=== PATIENT | female | born 1930 | race Caucasian/White ===

== ENCOUNTER 2018-06-28 11:28 | Emergency (ER) | payer OTHER ==
[2018-06-28 13:32] LABS: Absolute Lymphocytes (CBC) 1.7 K/uL (0.7-4.9); Absolute Monocytes 0.5 K/uL (0.1-1.3); Absolute Neutrophil 5.8 K/uL (1.8-8.0); Basophils % 0.8 % (0-1.3); Eosinophils % 4.6 % (0-4.4); Hematocrit 25.1 % (36.0-45.0); MPV 7.9 fL (7.6-11.3); Monocytes % 5.6 % (3.3-12.3); RBC Red Blood Cell Count 3.57 M/uL (3.86-4.86)
[2018-06-28 13:42] LABS: Protime INR 1.08
[2018-06-28 14:12] LABS: Ferritin 16.2 ng/mL (8-388); Folic Acid, (Folate) 5.3 ng/mL (3.1-17.5); Potassium 4.6 mmol/L (3.5-5.1)
[2018-06-28] MEDS ORDERED: NA CHLORIDE 0.9% 500 ML ONE (14:44)
--- NOTE | 2018-06-28 14:50 | EDPHYS ---
Physician Documentation [facility] Name: Atiya Casarez Age: 88 yrs Sex: Female : 1930 Arrival Date: 06/28/2018 Time: 11:29 Bed 28 Private MD: Dylon Arreola ED Physician Alfredo Murillo HPI: 06/28 12:31 This 88 yrs old Female presents to ER via Wheelchair with complaints of rn Abnormal Lab Results - sent by dr arreola. 12:[address] Arreola for anemia, reports single episode of dark black stool, has rn had anemia in past without diagnosis reports scoped above and below, and transfused a few years ago. + generalized weakness and sob. . Onset: The symptoms/episode began/occurred at an unknown time. Severity of symptoms: At their worst the symptoms were mild in the emergency department the symptoms are unchanged. The patient has experienced a previous episode. The patient has been recently seen by a physician:. Historical: - Allergies: 12:30 PENICILLINS; dm5 12:30 Valium; dm5 14:54 Levaquin; ca1 14:54 Tramadol HCl; ca1 - Home Meds: 12:49 albuterol sulfate 2.5 mg /3 mL (0.083 %) Inhl nebu 3 mL 3 times per day [Active]; ch 14:54 hydralazine 50 mg Oral tab 1 tab 3 times a day [Active]; sertraline 50 mg oral tab 1 ca1 tab once daily [Active]; carvedilol 6.25 mg oral tab 1 tab daily [Active]; clopidogrel 75 mg oral tab 1 tab once daily [Active]; furosemide 20 mg Oral tab 1 tab once daily [Active]; aspirin 81 mg Oral chew 1 tab once daily [Active]; pantoprazole 40 mg oral TbEC 1 tab once daily [Active]; Vitamin D Oral 50,000 unit [Active]; Lyrica Oral 1 cap daily [Active]; 14:58 Symbicort [Active]; proair [Active]; Sprivia [Active]; Nystatin Powder 10,000 twice a ca1 day [Active]; - PMHx: 12:49 Hypertension; ch - Immunization history:: Adult Immunizations up to date. - Social history:: Smoking status: Patient/guardian denies using tobacco, Patient/guardian denies using alcohol, street drugs. - Family history:: not pertinent. - Ebola Screening: : Patient negative for fever greater than or equal to 101.5 degrees Fahrenheit, and additional compatible Ebola Virus Disease symptoms Patient denies exposure to infectious person Patient denies travel to an Ebola-affected area in the 21 days before illness onset No symptoms or risks identified at this time. - Hospitalizations: : No recent hospitalization is reported. ROS: 12:31 Constitutional: Negative for fever, chills, and weight loss, ENT: Negative for injury, rn pain, and discharge, Neck: Negative for injury, pain, and swelling, Cardiovascular: Negative for chest pain, palpitations, and edema, Respiratory: Negative for shortness of breath, cough, wheezing, and pleuritic chest pain, Abdomen/GI: Negative for abdominal pain, nausea, vomiting, diarrhea, and constipation, + dark stool MS/Extremity: Negative for injury and deformity, Skin: Negative for injury, rash, and discoloration, Neuro: + generalized weakness Exam: 12:31 Constitutional: This is a well developed, well nourished patient who is awake, alert, rn and in no acute distress. Head/Face: Normocephalic, atraumatic. Eyes: Pupils equal round and reactive to light, extra-ocular motions intact. Lids and lashes normal. Pale conjunctivae ENT: MMM Cardiovascular: Regular rate and rhythm. No pulse deficits. Respiratory: Lungs have equal breath sounds bilaterally, clear to auscultation. No increased work of breathing, no retractions or nasal flaring. Abdomen/GI: soft, non-tender MS/ Extremity: Pulses equal, no cyanosis. Neurovascular intact. Full, normal range of motion. Equal circumference. Neuro: Awake and alert, GCS 15, oriented to person, place, time, and situation. Cranial nerves II-XII grossly intact. Motor strength 5/5 in all extremities. Sensory grossly intact. Cerebellar exam normal. Vital Signs: 12:30 BP 158 / 73; Pulse 60; Resp 15; Pulse Ox 97% on R/A; dm5 12:47 BP 144 / 71; Pulse 66; Resp 16; Temp 98.4; Pulse Ox 99% on R/A; Weight 72.12 kg; Pain ch 0/10; 13:30 BP 140 / 91; Pulse 67; Resp 19; Pulse Ox 100% ; ca1 14:31 BP 135 / 87; Pulse 63; Resp 18; Pulse Ox 100% ; ca1 15:31 BP 164 / 49; Pulse 50; Resp 18; Pulse Ox 99% on R/A; tl3 MDM: 12:15 Patient medically screened. rn 14:48 Differential Diagnosis anemia. Data reviewed: vital signs, nurses notes, lab test rn result(s), and as a result, I will discharge patient. Counseling: I had a detailed discussion with the patient and/or guardian regarding: the historical points, exam findings, and any diagnostic results supporting the discharge/admit diagnosis, lab results, the need for outpatient follow up, to return to the emergency department if symptoms worsen or persist or if there are any questions or concerns that arise at home. Special discussion: I discussed with the patient/guardian in detail that at this point there is no indication for admission to the hospital. It is understood, however, that if the symptoms persist or worsen the patient needs to return immediately for re-evaluation. Based on the history and exam findings, there is no indication for further emergent testing or inpatient evaluation. I discussed with the patient/guardian the need to see the dough molder hand/oncologist for further evaluation of the symptoms. ED course: Pt with iron deficiency anemia, hemoccult negative, spoke with Dr. Arreola who states can set up outpt iron infusions, patient has had iron infusions in past and comfortable with plan, normal vitals. . 06/28 12:23 Order name: CBC with Diff; Complete Time: 14:09 rn 06/28 12:23 Order name: Basic Metabolic Panel; Complete Time: 14:28 rn 06/28 12:23 Order name: Protime (+inr); Complete Time: 14: rn 06/28 12:23 Order name: Ptt, Activated; Complete Time: 14: rn 06/28 12:23 Order name: Type And Screen rn 06/28 12:23 Order name: Iron Level; Complete Time: 14:28 rn 06/28 12:23 Order name: IV Start; Complete Time: 13:14 rn 06/28 12:23 Order name: Retic Count; Complete Time: 14:09 rn 06/28 12:23 Order name: Ferritin rn 06/28 12:23 Order name: TRANSFERRIN SAT/IRON BINDING; Complete Time: 14:28 rn 06/28 12:23 Order name: Folic Acid,Serum (folate); Complete Time: 14:28 rn 06/28 12:23 Order name: B12; Complete Time: 14:28 rn 06/28 12:24 Order name: EKG; Complete Time: 12:25 rn 06/28 12:24 Order name: EKG - Nurse/Tech; Complete Time: 13:14 rn Administered Medications: 14:33 Drug: NS 0.9% 500 ml Route: IV; Rate: bolus; Site: right antecubital; ca1 15:32 Follow up: Response: No adverse reaction; IV Status: Completed infusion ca1 15:32 Follow up: IV Status: Completed infusion; IV Intake: 500ml tl3 Disposition: 06/28/18 14:49 Discharged to Home. Impression: Iron deficiency anemia. - Condition is Stable. - Discharge Instructions: Iron Deficiency Anemia, Adult. - Medication Reconciliation Form, Thank You Letter, Antibiotic Education, Prescription Opioid Use form. - Follow up: Dylon Arreola MD; When: Upon discharge from the Emergency Department; Reason: Recheck today's complaints, Re-evaluation by your physician. - Problem is an ongoing problem. - Symptoms have improved. Signatures: Dispatcher [employer] EDMS Jenna Lowery RN RN Samaria Boudreaux RN RN dm5 Alfredo Murillo MD MD rn Lowrey, Tammy, RN RN tl3 Anju Amador RN RN ca1 Corrections: (The following items were deleted from the chart) 15:34 14:49 06/28/2018 14:49 Discharged to Home. Impression: Iron deficiency anemia. tl3 Condition is Stable. Forms are Medication Reconciliation Form, Thank You Letter, Antibiotic Education, Prescription Opioid Use. Follow up: Dylon Arreola; When: Upon discharge from the Emergency Department; Reason: Recheck today's complaints, Re-evaluation by your physician. Problem is an ongoing problem. Symptoms have improved. rn
--- NOTE | 2018-06-28 14:50 | ER ---
Nurse's Notes [facility] Name: Atiya Casarez Age: 88 yrs Sex: Female : 1930 Arrival Date: 06/28/2018 Time: 11:29 Bed 28 Private MD: Dylon Arita Diagnosis: Iron deficiency anemia Presentation: 06/28 12:29 Presenting complaint: Patient states: sent by Dr. Arita for abnormal labs. Possibly dm5 HGB but the patient is unsure. Transition of care: patient was not received from another setting of care. Onset of symptoms was June 28, 2018. Risk Assessment: Do you want to hurt yourself or someone else? Patient reports no desire to harm self or others. Initial Sepsis Screen: Does the patient meet any 2 criteria? No. Patient's initial sepsis screen is negative. Does the patient have a suspected source of infection? No. Patient's initial sepsis screen is negative. Care prior to arrival: None. 12:29 Method Of Arrival: Wheelchair dm5 12:29 Acuity: JONI 3 dm5 Triage Assessment: 12:30 General: Appears in no apparent distress. Behavior is calm, cooperative. Pain: Denies dm5 pain. Neuro: Level of Consciousness is awake, alert, obeys commands, Oriented to person, place. Neuro: Reports weakness. Cardiovascular:. Respiratory: Airway is patent Respiratory effort is even, unlabored, relaxed. GI: Reports one black stool. : No signs and/or symptoms were reported regarding the genitourinary system. Derm: Skin is dry, Skin is pale, Skin temperature is warm. Historical: - Allergies: 12:30 PENICILLINS; dm5 12:30 Valium; dm5 14:54 Levaquin; ca1 14:54 Tramadol HCl; ca1 - Home Meds: 12:49 albuterol sulfate 2.5 mg /3 mL (0.083 %) Inhl nebu 3 mL 3 times per day [Active]; ch 14:54 hydralazine 50 mg Oral tab 1 tab 3 times a day [Active]; sertraline 50 mg oral tab 1 ca1 tab once daily [Active]; carvedilol 6.25 mg oral tab 1 tab daily [Active]; clopidogrel 75 mg oral tab 1 tab once daily [Active]; furosemide 20 mg Oral tab 1 tab once daily [Active]; aspirin 81 mg Oral chew 1 tab once daily [Active]; pantoprazole 40 mg oral TbEC 1 tab once daily [Active]; Vitamin D Oral 50,000 unit [Active]; Lyrica Oral 1 cap daily [Active]; 14:58 Symbicort [Active]; proair [Active]; Sprivia [Active]; Nystatin Powder 10,000 twice a ca1 day [Active]; - PMHx: 12:49 Hypertension; ch - Immunization history:: Adult Immunizations up to date. - Social history:: Smoking status: Patient/guardian denies using tobacco, Patient/guardian denies using alcohol, street drugs. - Family history:: not pertinent. - Ebola Screening: : Patient negative for fever greater than or equal to 101.5 degrees Fahrenheit, and additional compatible Ebola Virus Disease symptoms Patient denies exposure to infectious person Patient denies travel to an Ebola-affected area in the 21 days before illness onset No symptoms or risks identified at this time. - Hospitalizations: : No recent hospitalization is reported. Screenin:04 Abuse screen: Denies threats or abuse. Denies injuries from another. Nutritional ch screening: No deficits noted. Tuberculosis screening: No symptoms or risk factors identified. Fall Risk None identified. Assessment: 13:04 General: Appears in no apparent distress. comfortable, Behavior is calm, cooperative, ch appropriate for age. Pain: Denies pain. Neuro: No deficits noted. Respiratory: Airway is patent Trachea midline Respiratory effort is even, unlabored, Breath sounds are diminished bilaterally. GI: No signs and/or symptoms were reported involving the gastrointestinal system. Patient currently denies nausea, rectal bleeding, vomiting. : No signs and/or symptoms were reported regarding the genitourinary system. Derm: Skin is pale, pt has lots of fresh bruises, pt skin bruses very easily, from bp cuff. 14:00 Reassessment: Patient appears in no apparent distress at this time. Patient and/or ca1 family updated on plan of care and expected duration. Pain level reassessed. Patient is alert, oriented x 3, equal unlabored respirations, skin warm/dry/pink. 14:43 Reassessment: Patient appears in no apparent distress at this time. Patient and/or ca1 family updated on plan of care and expected duration. Pain level reassessed. Patient is alert, oriented x 3, equal unlabored respirations, skin warm/dry/pink. Dr. Murillo at bedside. 15:01 Reassessment: Awaiting fluids to be completed prior to discharge per Dr. Murillo's ca1 instructions. . 15:31 Reassessment: Patient appears in no apparent distress at this time. No changes from tl3 previously documented assessment. Patient and/or family updated on plan of care and expected duration. Pain level reassessed. Patient is alert, oriented x 3, equal unlabored respirations, skin warm/dry/pink. pt being discharged. Vital Signs: 12:30 BP 158 / 73; Pulse 60; Resp 15; Pulse Ox 97% on R/A; dm5 12:47 BP 144 / 71; Pulse 66; Resp 16; Temp 98.4; Pulse Ox 99% on R/A; Weight 72.12 kg; Pain ch 0/10; 13:30 BP 140 / 91; Pulse 67; Resp 19; Pulse Ox 100% ; ca1 14:31 BP 135 / 87; Pulse 63; Resp 18; Pulse Ox 100% ; ca1 15:31 BP 164 / 49; Pulse 50; Resp 18; Pulse Ox 99% on R/A; tl3 ED Course: 11:29 Patient arrived in ED. sb2 11:30 Dylon Arita MD is Private Physician. sb2 12:15 Alfredo Murillo MD is Attending Physician. rn 12:30 Triage completed. dm5 12:30 Arm band placed on. dm5 12:47 Jenna Lowery, KATHRYN is Primary Nurse. ch 12:49 EKG done, by health information tech. reviewed by Alfredo Murillo MD. at1 13:04 Patient has correct armband on for positive identification. Placed in gown. Bed in low ch position. Call light in reach. Side rails up X 1. Adult w/ patient. court monitor on. Pulse ox on. NIBP on. Warm blanket given. 13:04 Missed attempt(s): 20 gauge in left forearm. Bleeding controlled, band aid applied, ch catheter tip intact. 13:23 Initial lab(s) drawn, by me, sent to lab. Inserted saline lock: 22 gauge in right tl3 antecubital area, using aseptic technique. Blood collected. 14:49 Dylon Arita MD is Referral Physician. rn 15:01 No provider procedures requiring assistance completed. ca1 15:31 IV discontinued, intact, bleeding controlled, No redness/swelling at site. Pressure tl3 dressing applied. Administered Medications: 14:33 Drug: NS 0.9% 500 ml Route: IV; Rate: bolus; Site: right antecubital; ca1 15:32 Follow up: Response: No adverse reaction; IV Status: Completed infusion ca1 15:32 Follow up: IV Status: Completed infusion; IV Intake: 500ml tl3 Intake: 15:32 IV: 500ml; Total: 500ml. tl3 Outcome: 14:49 Discharge ordered by . rn 15:31 Discharged to home via wheelchair. tl3 15:31 Condition: stable 15:31 Discharge instructions given to patient, family, Instructed on discharge instructions, follow up and referral plans. medication usage, Demonstrated understanding of instructions, follow-up care. 15:34 Patient left the ED. tl3 Signatures: Jenna Lowery, RN RN Samaria Doe RN RN dm5 Alfredo Murillo MD MD rn Gonzales, Amanda, cylinder inspector EKG Tat1 Ashley Caba sb2 Avelina De La Vega RN RN tl3 Anju Amador RN RN ca1
[2018-06-28 16:02] VITALS: TEMP 98.4
[2018-06-28 16:06] VITALS: BP 164/49; O2SAT 99
--- NOTE | 2018-06-28 17:01 | EKG ---
Test Date: 2018-05-28 Test Time: 12:42:52 Traffic Control Operator: MIGUEL ANGEL MEASUREMENT RESULTS: Intervals: Rate: 61 [place]: 172 QRSD: 128 QT: 476 QTc: 479 [place]: P: 53 [place]: 172 QRS: -38 T: 61 INTERPRETIVE STATEMENTS: Sinus rhythm with premature atrial complexes Left axis deviation Left bundle branch block Abnormal ECG Compared to ECG 11/04/2015 10:40:42 Atrial premature complex(es) now present Left-axis deviation now present Left bundle-branch block now present Sinus bradycardia no longer present Electronically Signed On 06-28-18 17:01:00 MAIL TECHNICIAN by Patel Parra
== END 2018-06-28 15:34 | disposition home or self-care (01) ==
LOC: ER 11:28
DX: D50.9 Iron deficiency anemia, unspecified (principal); I44.7 Left bundle-branch block, unspecified; I49.1 Atrial premature depolarization; R94.31 Abnormal electrocardiogram [ECG] [EKG]; I10 Essential (primary) hypertension; Z79.82 Long term (current) use of aspirin; Z79.899 Other long term (current) drug therapy
CPT/HCPCS: 36415; 80048; 82607; 82728; 82746; 83540; 84466; 85025; 85044; 85610; 85730; 86850; 86900; 86901; 93005; 96360; 99284

== ENCOUNTER 2018-11-09 08:19 | Day surgery (SDC) | payer OTHER ==
[2018-11-09 09:24] LABS: Albumin 3.5 g/dL (3.4-5.0); Bilirubin Total 0.2 mg/dL (0.2-1.0); Protein, Total 7.1 g/dL (6.4-8.2)
[2018-11-09 09:26] VITALS: BMI 34.3
[2018-11-09 09:31] LABS: Protime INR 0.98
[2018-11-09 09:33] LABS: Platelet Estimate ADEQ
--- NOTE | 2018-11-09 12:21 | RAD REPORT ---
EXAM DESCRIPTION: RAD - Thoracic Spine Ap/Lat - 11/09/2018 12:10 pm CLINICAL HISTORY: M54.5, M54.2, M54.6, M54.16 COMPARISON: Chest film October 2017. FINDINGS: AP & lateral views of the thoracic spine were obtained. T1-T11 vertebrae are normal in height. Osteopenic changes are present. There is right lateral tilt ac ross the entirety of the thoracic spine. There is accentuated kyphosis at the T11-12 level. Extensive surgical hardware is in place spanning T11- L3. Partial chronic wedge compression of T12 is present. There is fusion across the T12-L1 disc level. Prominent anterior spurs are present at T11-12 disc le bjorn which is narrowed slightly. Approximately 20% wedge compression present in the T5 body, stable from at least October 2017. No parasp inal mass. Thoracic vertebrae are otherwise normal in height. IMPRESSION: Osteopenic changes are present in the thoracic spine with no acute finding identifiable. The 20% T5 compression and the wedge compression of T12 are stable from prior imaging. Accentuated kyphosis and right lateral tilt of the thoracic spine associated with the superior aspect of the fusion hardware at T11-12.
--- NOTE | 2018-11-09 12:23 | RAD REPORT ---
EXAM DESCRIPTION: RAD - C Spine Ap/Lat - 11/09/2018 12:10 pm CLINICAL HISTORY: M54.5, M54.2, M54.6, M54.16 COMPARISON: None. FINDINGS: AP and lateral views of the cervical spine obtained. Cervical bodies are normal in height and alignment. No fracture or acute bony process seen. Bones are osteopenic. Posterior endplate spurring changes are present at C4-5 and C5-6. Facet joint degenerati ve changes are present. There is no prevertebral soft tissue thickening or other suspicious soft tissue finding. Carotid calcifications are present. IMPRESSION: Osteopenic and degenerative cervical spine changes are present without fracture or acute cervical finding. Degenerative changes are most pronounced where there is moderate-sized posterior endplate spurring at C5-6.
--- NOTE | 2018-11-09 12:27 | RAD REPORT ---
EXAM DESCRIPTION: RAD - Lumbar Spine 3 Views - 11/09/2018 12:10 pm CLINICAL HISTORY: M54.5, M54.2, M54.6, M54.16 COMPARISON: None. FINDINGS: AP and lateral views of the lumbar spine were obtained. Spina findings are further detaile d on separately reported myelogram and post myelogram CT imaging. L3-L5 bodies are normal in height and alignment. No disc space narrowing at the lower 3 lumbar level s. Prominent facet joint degenerative changes are present at L4-5 and L5-S1. Extensive surgical hardware present from upper or lumbar and thoracolumbar fusion. Left lateral fusio n plate and bone screws are present at the vertebral body level. There is posterior charla placement spa nning T11-L3. No hardware fracture. Neurostimulator device is in place. Accentuated kyphosis present at the thoracolumbar junction. Slight wedging of the T12 and L1 bodies n oted with evidence for fusion across the T12-L1 disc space. There is probably bony fusion across the L1-2 disc space as well. No acute fracture changes seen. No lytic, sclerotic or expansile destructive process. L2-3 disc space narrowing present. IMPRESSION: Fusion changes of the upper lumbar spine with left lateral vertebral body hardware sonia ing T12- L3 and posterior hardware spanning T11-L3. T12-L2 bodies appear fused across the respective disc levels. Prominent degenerative disc disease at L2-3.
--- NOTE | 2018-11-09 13:01 | RAD REPORT ---
EXAM DESCRIPTION: RAD - Myelography Entire Spine - 11/09/2018 12:21 pm CLINICAL HISTORY: Back pain, radiculopathy, extensive lumbar surgery COMPARISON: Lumbar plain films same date, CT abdomen pelvis October 2017 TECHNIQUE: The patient presents for fluoroscopic assisted total myelogram. The myelogram procedure, risks and alternatives were discussed with the patient in detail. After answering all questions both oral and written consent were obtained. The patient had no contraindicated allergy or medication hist ory. PT/INR/platelet values were normal range. The patient was placed in a prone oblique position on the fluoroscopic table. Preliminary imaging lg ntified access site at the L4-5 level. Bony hypertrophy and hardware precluded access elsewhere in th e lumbar spine. Skin of the lower back was prepped and draped in the usual sterile fashion. Skin and deeper tissues w ere anesthetized with 1% lidocaine. Using fluoroscopic assistance, a 22 gauge spinal needle was advan harika into the thecal sac at the L4-5 level. Intrathecal placement was confirmed. Approximately 15 mL o f Isovue M 200 contrast material was instilled into the thecal sac. The needle was withdrawn and a st erile bandage placed to the puncture site. The patient tolerated procedure well without immediate com plications. The patient was in no new pain at the conclusion of the procedure. Several spot images we re obtained of the lumbar spine. The patient was transferred to the CT suite for cross-sectional imag ing of the cervical, thoracic and lumbar spine. Trendelenburg positioning was utilized with the patie nt supine, prone and on her side to enable transfer of contrast from the lumbar spine to thoracic and cervical spine regions. At the conclusion of the CT imaging, the patient was transferred to the same day surgical area for post myelogram monitoring. Fluoro time was 3.0 minutes. There were 6 fluoroscopic spot images obtained during the procedure. IMPRESSION: 1. Total myelogram procedure was performed as detailed. There were no immediate complica tions. 2. Myelogram findings are incorporated into the CT imaging.
--- NOTE | 2018-11-09 13:05 | RAD REPORT ---
EXAM DESCRIPTION: CT - Myelogram C Spine - 11/09/2018 12:23 pm CLINICAL HISTORY: Neck pain, upper and lower extremity radiculopathy, extensive lumbar surgical devries ge M54.5, M54.2, M54.6, M54.16 COMPARISON: CT cervical spine same date TECHNIQUE: After patient maneuvering to transfer myelogram contrast column into the cervical canal, axial 2 millimeter thick images of the cervical spine were obtained. Sagittal and coronal reformatted images were generated and reviewed. FINDINGS: Cervical bodies are normal in height and normal in AP alignment. No fracture changes are p resent. No lytic, sclerotic or expansile bony process seen. Mastoid air cells are clear. Arterial naseem e calcifications are present. No suspicious findings at the skull base. No tonsillar ectopia. Moderate severity degenerative change present at the dens anterior arch C1 level. No encroachment of the central canal. There is mild thickening of the transverse ligament posterior to the dens without calcification. No contact of the cervicomedullary junction. C2-3 level: Mild posterior endplate spurring and disc bulge changes are present partially attenuating the anterior subarachnoid space. Midline canal diameter is 12 mm. No significant foraminal encroachm ent. C3-4 level: Broad-based bulging of disc material is seen across is canal partially attenuating the an terior subarachnoid space. Posterior ligamentous thickening is seen. Midline canal diameter is 11 mm. No foraminal stenosis. C4-5 level: Broad-based disc herniation is seen across the central canal. This contacts and slightly flattens the cord. Canal diameter is 8 mm. Posterior ligamentous thickening is present. No significan t foraminal encroachment. Central canal detail is somewhat limited by the body habitus. Herniation is estimated at 4 mm AP by 11 mm TR. C5-6 level: Disc bulge and endplate spurring changes attenuate the anterior subarachnoid space. There is contact and flattening of the cord. Canal diameter is 8 mm. No significant bony foraminal encroac hment. The disc space is narrowed. C6-7 level: Posterior endplate spurring and disc bulge changes are present. No flattening of the cord . No central spinal stenosis. No significant foraminal encroachment. C7-T1 level: No significant finding. No expansile change of the cord. Facet joint degenerative changes are present but minimal for age. IMPRESSION: 1. 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 2. C5-6 disc bulge and endplate spurring changes. Canal stenosis to 8 mm noted. 3. C3-4 disc bulge. No canal or foramen stenosis. 4. C2-3 disc bulge and endplate spurring resulting in no significant canal stenosis. No foraminal enc roachment.
--- NOTE | 2018-11-09 13:08 | RAD REPORT ---
EXAM DESCRIPTION: CT - Thoracic Spine Wo Cont - 11/09/2018 12:23 pm CLINICAL HISTORY: M54.5, M54.2, M54.6, M54.16 COMPARISON: Thoracic spine same date, chest exam October 2017 TECHNIQUE: Following patient positioning maneuvers to transfer intrathecal contrast, axial [address] thick images of the thoracic spine were obtained. Sagittal and coronal reformatted images were ge nerated and reviewed. FINDINGS: Approximately 20% wedge compression is present in the T5 body stable from October 2017. Poste rior wall height is preserved. T1-T11 vertebrae are otherwise normal in height. There is wedging of t he T12 body that is chronic. No acute compression fracture is present. No lytic, sclerotic or expansile destructive change. No par aspinal mass is identified. Prominent midline and right-sided disc bulge is present at T5-6. Minimal left central disc bulge at T 6-7. The bulging discs changes do not contact the cord. No central spinal stenosis. No expansile changes in the cord. No central canal mass. IMPRESSION: 1. T5-6 prominent midline and right-sided disc bulge with mild left central disc bulge a t T6-7. No contact of the cord. No canal or foramen stenosis. 2. No other significant disc level finding. Partial wedge compressions of T5 and T12 are stable. 3. No other significant findings from T1-T11. T12 findings are incorporated into the lumbar spine CT report.
[2018-11-09 13:09] VITALS: O2SAT 97
--- NOTE | 2018-11-09 13:13 | RAD REPORT ---
EXAM DESCRIPTION: CT - Spine Lumbar Wo Con - 11/09/2018 12:02 pm CLINICAL HISTORY: M54.5, M54.2, M54.6, M54.16 COMPARISON: Lumbar spine plain films same date, CT abdomen and pelvis October 2017 TECHNIQUE: Following intrathecal placement of contrast detailed on the separate myelogram procedure report, axial 2 millimeter thick images of the lumbar spine were obtained spanning T10-S3. Sagittal a nd coronal reformatted images were generated and reviewed. All CT scans are performed using dose optimization technique as appropriate and may include automated exposure control or mA/KV adjustment according to patient size. FINDINGS: Fibula or rib graft material is in place from the T12-1 disc level inferiorly through the L2 body. Fixation hardware is present along the left lateral margin of the vertebral column from T12- L3. Posterior fixation hardware is present from T11-L3. No hardware fracture. T12-L2 bodies appear well-healed across the disc spaces. Overall lumbar bones are osteopenic. There i s left lateral curvature with the apex at the T12 level. There is also accentuated kyphosis at T11-12 . There is mild chronic wedging of the T12 body that has not changed from prior imaging. L3-L5 bodies are normal in height and alignment. No acute component. No disc space narrowing at these levels. No paraspinal soft tissue mass. Postsurgical changes are present in the posterior soft tissues. No ac luke soft tissue finding suspected. Conus terminates at the L1 level. No clumping or thickening of the cauda equina identified. No CT fin dings to indicate arachnoiditis. T10-11 disc level shows degenerative gas in the disc space. No herniation or disc bulge. No canal or foramen stenosis. T11-12 disc level shows no herniation or significant disc bulge. Midline AP canal diameter is 10-11 m m. Surgical hardware is the primary contributor of narrowing of the canal at this level. T12-L1 level: Disc level is fused. No herniation, disc bulge and endplate spurring encroaching into t he central canal. The cord is flattened near the tip of the conus due to the kyphosis at T12. AP diam eter is 11-12 mm. L1-2 level: Well-healed fusion across the disc space. No disc bulge, herniation or bone spurring into the central canal. No central spinal stenosis or significant foraminal encroachment identifiable. L2-3 level: No herniation or significant disc bulge. No canal or significant foraminal stenosis. L3-4 level: No canal stenosis or significant foraminal encroachment. No significant disc finding. L4-5 level: No herniation or significant disc bulge. No canal or foramen stenosis. Facet degenerative changes are present. L5-S1 level: No herniation or significant disc bulge in the central canal. There is prominent right f oraminal disc bulge causing foraminal stenosis. There is still fat surrounding the exiting nerve root . No left foraminal stenosis. IMPRESSION: 1. Extensive postsurgical change present in the upper lumbar spine. There is well-healed fusion across the T12-L2 levels. 2. Bone graft and surgical hardware in place. There is accentuated kyphosis at the T12 level with lef t convex curvature of the upper lumbar spine. No fracture of hardware. 3. Conus is flattened along the T12 level due to the kyphosis. No clumping or thickening of the cauda equina. No CT evidence for arachnoiditis. 4. No disc herniation or significant degree of disc bulge in the lumbar spine. No central spinal sten osis present and no significant degree of foraminal stenosis seen.
[2018-11-09 17:02] VITALS: BP 145/48; TEMP 97.9
== END 2018-11-09 15:20 | disposition home or self-care (01) ==
LOC: DS 08:19
PROVIDERS: ATTEND Specialist
DX: M54.16 Radiculopathy, lumbar region (principal); Z98.1 Arthrodesis status; M40.294 Other kyphosis, thoracic region; M51.34 Other intervertebral disc degeneration, thoracic region; M50.221 Other cervical disc displacement at C4-C5 level; M50.31 Other cervical disc degeneration, high cervical region; M48.02 Spinal stenosis, cervical region
CPT/HCPCS: 36415; 85049; 85610; 85730; 80053; 72131; 72126; 72040; 72100; 62305; 72070; Q9966

== ENCOUNTER 2018-12-22 16:14 | Emergency (ER) | payer OTHER ==
[2018-12-22 17:16] LABS: Absolute Lymphocytes (CBC) 1.7 K/uL (0.7-4.9); Basophils % 0.8 % (0-1.3); Lymphocytes % 18.9 % (15.3-44.8); MPV 8.8 fL (7.6-11.3); RBC Red Blood Cell Count 4.09 M/uL (3.86-4.86)
[2018-12-22 17:16] LABS: Urine Blood NEGATIVE (NEG); Urine Glucose NEGATIVE (NEG); Urine Protein NEGATIVE (NEG); Urine Specific Gravity 1.015 (1.005-1.030); Urine pH 5.5 (5.0-7.0)
[2018-12-22 17:32] LABS: ALT/SGPT 23 U/L (12-78); AST/SGOT 16 U/L (15-37); Albumin 3.9 g/dL (3.4-5.0); Alkaline Phosphatase 96 U/L (45-117); BUN Blood Urea Nitrogen 47 mg/dL (7-18); Bicarbonate 25 mmol/L (21-32); Bilirubin Direct < 0.1 mg/dL (0-0.2); Bilirubin Total 0.2 mg/dL (0.2-1.0); Glucose Level 111 mg/dL (74-106); Lipase 414 U/L (73-393); Protein, Total 7.7 g/dL (6.4-8.2); Sodium Level 143 mmol/L (136-145)
--- NOTE | 2018-12-22 17:57 | RAD REPORT ---
EXAM DESCRIPTION: CTAbdomen Pelvis W Contrast - 12/22/2018 5:48 pm CLINICAL HISTORY: Abdominal pain. ABD PAIN COMPARISON: Abdomen Pelvis W Contrast dated 11/20/2017 TECHNIQUE: Biphasic CT imaging of the abdomen and pelvis was performed with 100 ml non-ionic IV cont rast. All CT scans are performed using dose optimization technique as appropriate and may include automated exposure control or mA/KV adjustment according to patient size. FINDINGS: The lung bases are clear.Moderate hiatal hernia. Cholecystectomy. No focal liver mass or biliary dilatation seen. The spleen, pancreas are normal. Small adrenal lesion s are present bilaterally, larger on the left measuring 17 mm, probably adenomas. Cysts are present i n both kidneys without hydronephrosis or aggressive mass. No bowel obstruction, free air, free fluid or abscess. Prominent sigmoid diverticulosis coli without diverticulitis. The appendix is not identified as a discrete structure, however, no secondary finding s of appendicitis are identified. No evidence of significant lymphadenopathy. Hardware is present in the lumbar spine. [place] left posterior fluid collection again noted in the le ft posterior soft tissues, decreased in size since prior study. IMPRESSION: No acute intra-abdominal or pelvic finding. Postsurgical lumbar spine. Prominent sigmoid diverticulosis coli.
--- NOTE | 2018-12-22 18:11 | EDPHYS ---
Physician Documentation [facility] Name: Atiya Casarez Age: 88 yrs Sex: Female : 1930 Arrival Date: 12/22/2018 Time: 16:16 Bed 19 Private MD: Dylon Arita ED Physician Alfredo Murillo HPI: 12/22 17:51 This 88 yrs old Female presents to ER via Ambulatory with complaints of Back kb Pain, Blood In Urine. 17:51 The patient presents with abdominal pain that is diffuse. Onset: The symptoms/episode kb began/occurred this morning. The symptoms do not radiate. Associated signs and symptoms: Pertinent positives: "blood when I wiped earlier today". The symptoms are described as constant. Modifying factors: The symptoms are alleviated by nothing, the symptoms are aggravated by nothing. Severity of pain: At its worst the pain was moderate in the emergency department the pain is unchanged. The patient has not experienced similar symptoms in the past. The patient has not recently seen a physician. Pt reports lower back pain for 2 weeks, lower abd pain for a few days and today had some blood on the tissue when she wiped. States she wiped twice, there was blood both times and that was all. Denies any bleeding since then. . Historical: - Allergies: 16:36 Levaquin; hb 16:36 PENICILLINS; hb 16:36 Tramadol HCl; hb 16:36 Valium; hb - Home Meds: 16:36 albuterol sulfate 2.5 mg /3 mL (0.083 %) Inhl nebu 3 mL 3 times per day [Active]; hb aspirin 81 mg Oral chew 1 tab once daily [Active]; carvedilol 6.25 mg Oral tab 1 tab daily [Active]; clopidogrel 75 mg Oral tab 1 tab once daily [Active]; furosemide 20 mg Oral tab 1 tab once daily [Active]; hydralazine 50 mg Oral tab 1 tab 3 TIMES A DAY [Active]; Lyrica Oral 1 cap daily [Active]; Nystatin Powder 10,000 twice a day [Active]; proair [Active]; pantoprazole 40 mg Oral TbEC 1 tab once daily [Active]; sertraline 50 mg Oral tab 1 tab once daily [Active]; Sprivia [Active]; symbicort [Active]; Vitamin D Oral 24816 unit [Active]; - PMHx: 16:36 Hypertension; hb - PSHx: 16:36 Hysterectomy; hb - Immunization history:: Adult Immunizations up to date. - Social history:: Smoking status: Patient/guardian denies using tobacco. - Ebola Screening: : No symptoms or risks identified at this time. ROS: 17:50 Constitutional: Negative for fever, chills, and weight loss, Cardiovascular: Negative kb for chest pain, palpitations, and edema, Respiratory: Negative for shortness of breath, cough, wheezing, and pleuritic chest pain, Back: Negative for injury and pain, MS/Extremity: Negative for injury and deformity, Skin: Negative for injury, rash, and discoloration, Neuro: Negative for headache, weakness, numbness, tingling, and seizure. 17:50 Abdomen/GI: Positive for abdominal pain, Negative for nausea, vomiting, and diarrhea, constipation, abdominal cramps, abdominal distension, anorexia. 17:50 : Positive for "blood when I wiped earlier today". Exam: 17:50 Constitutional: This is a well developed, well nourished patient who is awake, alert, kb and in no acute distress. Head/Face: Normocephalic, atraumatic. Neck: Trachea midline, no thyromegaly or masses palpated, and no cervical lymphadenopathy. Supple, full range of motion without nuchal rigidity, or vertebral point tenderness. No Meningismus. Chest/axilla: Normal chest wall appearance and motion. Nontender with no deformity. No lesions are appreciated. Cardiovascular: Regular rate and rhythm with a normal S1 and S2. No gallops, murmurs, or rubs. Normal PMI, no JVD. No pulse deficits. Respiratory: Lungs have equal breath sounds bilaterally, clear to auscultation and percussion. No rales, rhonchi or wheezes noted. No increased work of breathing, no retractions or nasal flaring. Back: No spinal tenderness. No costovertebral tenderness. Full range of motion. Skin: Warm, dry with normal turgor. Normal color with no rashes, no lesions, and no evidence of cellulitis. MS/ Extremity: Pulses equal, no cyanosis. Neurovascular intact. Full, normal range of motion. Neuro: Awake and alert, GCS 15, oriented to person, place, time, and situation. Cranial nerves II-XII grossly intact. Motor strength 5/5 in all extremities. Sensory grossly intact. Cerebellar exam normal. Normal gait. 17:50 Abdomen/GI: Inspection: abdomen appears normal, Bowel sounds: normal, in all quadrants, Palpation: soft, in all quadrants, mild abdominal tenderness, in all quadrants. Vital Signs: 16:33 BP 204 / 77; Pulse 68; Resp 16; Temp 97.9; Pulse Ox 100% on R/A; Weight 77.11 kg; hb Height 4 ft. 11 in. (149.86 cm); Pain 10/10; 17:17 BP 173 / 65; Pulse 59; Resp 21 S; Pulse Ox 98% on R/A; jl7 18:00 BP 172 / 64; Pulse 62; Resp 20 S; Pulse Ox 100% on R/A; jl7 16:33 Body Mass Index 34.34 (77.11 kg, 149.86 cm) hb MDM: 16:38 Patient medically screened. kb 17:50 Data reviewed: vital signs, nurses notes. Data interpreted: Pulse oximetry: on room air kb is 98 %. Interpretation: normal. 18:10 Counseling: I had a detailed discussion with the patient and/or guardian regarding: the kb historical points, exam findings, and any diagnostic results supporting the discharge/admit diagnosis, lab results, radiology results, the need for outpatient follow up, a family practitioner, to return to the emergency department if symptoms worsen or persist or if there are any questions or concerns that arise at home. 12/22 16:56 Order name: Basic Metabolic Panel; Complete Time: 17:33 kb 12/22 16:56 Order name: CBC with Diff; Complete Time: 17:33 kb 12/22 16:56 Order name: Hepatic Function; Complete Time: 17:33 kb 12/22 16:56 Order name: Lipase; Complete Time: 17:33 kb 12/22 16:56 Order name: CT Abd/Pelvis - IV Contrast Only; Complete Time: 18:01 kb 12/22 17:12 Order name: Urine Dipstick--Ancillary (enter results); Complete Time: 17:16 bd 12/22 16:56 Order name: IV Saline Lock; Complete Time: 17:09 kb 12/22 16:56 Order name: Labs collected and sent; Complete Time: 17:09 kb 12/22 16:56 Order name: Urine Dipstick-Ancillary (obtain specimen); Complete Time: 17:09 kb Administered Medications: No medications were administered Disposition: 12/22/18 18:10 Discharged to Home. Impression: Generalized abdominal pain. - Condition is Stable. - Discharge Instructions: Abdominal Pain, Adult, [id number]. - Medication Reconciliation Form, Thank You Letter, Antibiotic Education, Prescription Opioid Use form. - Follow up: Emergency Department; When: As needed; Reason: Worsening of condition. Follow up: Private Physician; When: 2 - 3 days; Reason: Recheck today's complaints, Continuance of care, Re-evaluation by your physician. Signatures: Dispatcher [employer] EDMS Beti Galvan, STREETCAR CONDUCTOR-C STREETCAR CONDUCTOR-Julia Sweeney RN RN Tammie Stephens RN RN jl7 Corrections: (The following items were deleted from the chart) 18:36 18:10 12/22/2018 18:10 Discharged to Home. Impression: Generalized abdominal pain. jl7 Condition is Stable. Forms are Medication Reconciliation Form, Thank You Letter, Antibiotic Education, Prescription Opioid Use. Follow up: Emergency Department; When: As needed; Reason: Worsening of condition. Follow up: Private Physician; When: 2 - 3 days; Reason: Recheck today's complaints, Continuance of care, Re-evaluation by your physician. kb
--- NOTE | 2018-12-22 18:11 | ER ---
Nurse's Notes [facility] Name: Atiya Casarez Age: 88 yrs Sex: Female : 1930 Arrival Date: 12/22/2018 Time: 16:16 Bed 19 Private MD: Dylon Arita Diagnosis: Generalized abdominal pain Presentation: 12/22 16:32 Presenting complaint: Right sided back pain x 2 weeks, blood in urine and lower hb abdominal cramping today. Transition of care: patient was not received from another setting of care. Onset of symptoms was December 22, 2018. Risk Assessment: Do you want to hurt yourself or someone else? Patient reports no desire to harm self or others. Initial Sepsis Screen: Does the patient meet any 2 criteria? No. Patient's initial sepsis screen is negative. Does the patient have a suspected source of infection? No. Patient's initial sepsis screen is negative. Care prior to arrival: None. 16:32 Method Of Arrival: Ambulatory hb 16:32 Acuity: JONI 3 hb Historical: - Allergies: 16:36 Levaquin; hb 16:36 PENICILLINS; hb 16:36 Tramadol HCl; hb 16:36 Valium; hb - Home Meds: 16:36 albuterol sulfate 2.5 mg /3 mL (0.083 %) Inhl nebu 3 mL 3 times per day [Active]; hb aspirin 81 mg Oral chew 1 tab once daily [Active]; carvedilol 6.25 mg Oral tab 1 tab daily [Active]; clopidogrel 75 mg Oral tab 1 tab once daily [Active]; furosemide 20 mg Oral tab 1 tab once daily [Active]; hydralazine 50 mg Oral tab 1 tab 3 TIMES A DAY [Active]; Lyrica Oral 1 cap daily [Active]; Nystatin Powder 10,000 twice a day [Active]; proair [Active]; pantoprazole 40 mg Oral TbEC 1 tab once daily [Active]; sertraline 50 mg Oral tab 1 tab once daily [Active]; Sprivia [Active]; symbicort [Active]; Vitamin D Oral 34312 unit [Active]; - PMHx: 16:36 Hypertension; hb - PSHx: 16:36 Hysterectomy; hb - Immunization history:: Adult Immunizations up to date. - Social history:: Smoking status: Patient/guardian denies using tobacco. - Ebola Screening: : No symptoms or risks identified at this time. Screenin:55 Abuse screen: Denies threats or abuse. Denies injuries from another. Nutritional jl7 screening: No deficits noted. Tuberculosis screening: No symptoms or risk factors identified. Fall Risk IV access (20 points). Total Figueroa Fall Scale indicates No Risk (0-24 pts). Assessment: 16:55 General: Appears in no apparent distress. uncomfortable, Behavior is calm, cooperative, jl7 appropriate for age. Pain: Complains of pain in right lower quadrant and left lower quadrant Pain radiates to low back area Pain currently is 8 out of 10 on a pain scale. Quality of pain is described as sharp, Pain began 2 weeks ago Is continuous. Neuro: Level of Consciousness is awake, alert, obeys commands, Oriented to person, place, time, situation. Cardiovascular: Patient's skin is warm and dry. Respiratory: Airway is patent Respiratory effort is even, unlabored. GI: Abdomen is round non-distended, Abdomen is tender to palpation in right upper quadrant, left upper quadrant and left lower quadrant. : Urine is clear, Reports vaginal bleeding that is bright red. Derm: Skin is pink, warm \T\ dry. 18:00 Reassessment: Patient appears in no apparent distress at this time. No changes from jl7 previously documented assessment. Patient and/or family updated on plan of care and expected duration. Pain level reassessed. Patient is alert, oriented x 3, equal unlabored respirations, skin warm/dry/pink. Vital Signs: 16:33 BP 204 / 77; Pulse 68; Resp 16; Temp 97.9; Pulse Ox 100% on R/A; Weight 77.11 kg; hb Height 4 ft. 11 in. (149.86 cm); Pain 10/10; 17:17 BP 173 / 65; Pulse 59; Resp 21 S; Pulse Ox 98% on R/A; jl7 18:00 BP 172 / 64; Pulse 62; Resp 20 S; Pulse Ox 100% on R/A; jl7 16:33 Body Mass Index 34.34 (77.11 kg, 149.86 cm) hb ED Course: 16:16 Patient arrived in ED. mr 16:17 Dylon Arita MD is Private Physician. mr 16:33 Triage completed. hb 16:33 Arm band placed on. hb 16:37 Beti Galvan FNP-C [facility]. kb 16:37 Alfredo Murillo MD is Attending Physician. kb 16:38 Tammie Stephens, RN is Primary Nurse. jl7 16:55 Patient has correct armband on for positive identification. Placed in gown. Bed in low jl7 position. Call light in reach. Side rails up X 1. Pulse ox on. NIBP on. Warm blanket given. 16:59 Radiology exam delayed due to lab results not completed at this time. (BUN/Creatinine). 17:00 Initial lab(s) drawn, by me, sent to lab. Urine collected: clean catch specimen, clear. jl7 Inserted saline lock: 20 gauge in right antecubital area, using aseptic technique. Blood collected. 17:11 Radiology exam delayed due to lab results not completed at this time. (BUN/Creatinine). wa 17:48 CT Abd/Pelvis - IV Contrast Only In Process Unspecified. EDMS 18:36 No provider procedures requiring assistance completed. IV discontinued, intact, jl7 bleeding controlled, No redness/swelling at site. Pressure dressing applied. Administered Medications: No medications were administered Outcome: 18:10 Discharge ordered by MD. kb 18:36 Discharged to home via wheelchair, with family. jl7 18:36 Condition: stable 18:36 Discharge instructions given to patient, family, Instructed on discharge instructions, follow up and referral plans. Demonstrated understanding of instructions, follow-up care. 18:36 Patient left the ED. jl7 Signatures: Dispatcher [employer] EDMS Beti Galvan FNP-C FNP-Eunice Venessa Beltrán, Bernice Julia Ornelas, RN RN Forest Ott Jahala, RN RN jl7
[2018-12-22 18:47] VITALS: TEMP 97.9
[2018-12-22 18:50] VITALS: BP 172/64; O2SAT 100
== END 2018-12-22 18:36 | disposition home or self-care (01) ==
LOC: ER 16:14
DX: R10.9 Unspecified abdominal pain (principal); I10 Essential (primary) hypertension; Z88.1 Allergy status to other antibiotic agents; Z88.5 Allergy status to narcotic agent; Z79.82 Long term (current) use of aspirin
CPT/HCPCS: 85025; 80048; 36415; 80076; 81003; 83690; 74177; Q9967

== ENCOUNTER 2020-12-20 11:04 | Day surgery (SDC) | payer OTHER ==
[2020-12-18 10:46] LABS: Absolute Lymphocytes (CBC) 2.1 K/uL (0.7-4.9); Basophils % 0.9 % (0-1.3); Hematocrit 24.6 % (36.0-45.0); MPV 7.3 fL (7.6-11.3); RBC Red Blood Cell Count 3.64 M/uL (3.86-4.86)
[2020-12-18 10:54] LABS: Potassium 4.1 mmol/L (3.5-5.1)
[2020-12-18 11:02] LABS: Protime INR 1.07
--- NOTE | 2020-12-18 11:25 | RAD REPORT ---
EXAM DESCRIPTION: RAD - Chest Pa And Lat (2 Views) - 12/18/2020 11:01 am CLINICAL HISTORY: pre-procedure, patient pending cardiac catheterization COMPARISON: October 2017 TECHNIQUE: Frontal and lateral views of the chest were obtained. FINDINGS: The lungs are clear of acute process. Mild chronic interstitial pattern matches compariso n. Heart size is normal and central vasculature is within normal limits. No pleural effusion or pneu mothorax seen. No acute bone findings seen. There is fusion hardware at the thoracolumbar junction w ith accentuated kyphosis. This is a stable presentation. No aortic abnormality. IMPRESSION: No acute cardiopulmonary process. No significant change from comparison study.
[2020-12-18 13:18] LABS: Anisocytosis 1+; Blood Morphology Comment NOTED (NOT SEEN); Hypochromasia 1+; Platelet Estimate ADEQ; White Blood Cell Scan OK (OK)
--- NOTE | 2020-12-20 07:35 | EKG ---
Test Date: 2020-12-18 Test Time: 09:13:28 Key Account Director: MIGUEL ANGEL MEASUREMENT RESULTS: Intervals: Rate: 78 [place]: 166 QRSD: 124 QT: 406 QTc: 462 [place]: P: 49 [place]: 166 QRS: -40 T: 123 INTERPRETIVE STATEMENTS: Normal sinus rhythm Left axis deviation Left bundle branch block Abnormal ECG Compared to ECG 06/28/2018 12:42:52 Atrial premature complex(es) no longer present Electronically Signed On 12-20-20 07:29:11 CDT by John Grant
--- NOTE | 2020-12-20 07:35 | EKG ---
Test Date: 2020-12-18 Test Time: 09:13:53 Filler Shredding Machine Loader: MIGUEL ANGEL MEASUREMENT RESULTS: Intervals: Rate: 76 [place]: 174 QRSD: 122 QT: 418 QTc: 470 [place]: P: 38 [place]: 174 QRS: -40 T: 115 INTERPRETIVE STATEMENTS: Normal sinus rhythm with sinus arrhythmia Left axis deviation Left bundle branch block Abnormal ECG Compared to ECG 12/18/2020 09:13:28 No significant changes Electronically Signed On 12-20-20 07:29:10 CDT by John Grant
[2020-12-20] MEDS ORDERED: HEPA 1000U/500MLS 2,000 UNIT/1,000 ML BAG IV ONE (11:17)
[2020-12-20] MEDS ORDERED: LIDOCAINE 1% 20 ML MDV ONE (11:17)
[2020-12-20] MEDS ORDERED: NA CHLORIDE 0.9% 500 ML ONE (11:27)
[2020-12-20] MEDS ORDERED: NITROGLYCERIN 100 MCG/ML SYR (for cath lab use only) IV ONE (12:02)
[2020-12-20] MEDS ORDERED: FENTANYL CITR 100 MCG/2 ML ONE (12:02)
[2020-12-20] MEDS ORDERED: HEPARIN 10,000 UNIT/10 ML VIAL IV ONE (12:02)
[2020-12-20] MEDS ORDERED: VERAPAMIL HCL 10 MG/4 ML VIAL IV ONE (12:02)
[2020-12-20] MEDS ORDERED: ATROPINE SULF 1 MG/10 ML SYR IV ONE (12:02)
[2020-12-20] MEDS ORDERED: MIDAZOLAM HCL 2 MG/2 ML INJ ONE (12:18)
[2020-12-20] MEDS ORDERED: HYDRALAZINE HCL 20 MG/ML VIAL ONE (13:12)
--- NOTE | 2020-12-20 14:07 | OP ---
Date of Procedure: 12/20/2020 Surgeon: ROSA NINO Procedures Performed: 1.Selective coronary angiogram. 2.Distal aortogram with runoff and bilateral peripheral angiograms. Indication: 1.Peripheral vascular disease. 2.Chest pain with abnormal stress test. Access: Right femoral artery 6-Namibian closed with 6-Namibian Angio-Seal. Complications: None. Bleeding: Less than 10 mL. Description Of Procedure: After risks, benefits, and alternatives were explained, the patient agreed to the procedure and signed informed consent. The patient was brought to the cardiac catheterizatio n laboratory, prepped and draped in usual sterile fashion. Then, I tried to attempt to access right radial; however, there was significant tortuosity and could not pass a wire through. Then, obtained the right femoral artery access under ultrasound and fluoroscopy guidance and placed a 6-Namibian Pinna chrystal sheath and took a 6-Namibian JL4 catheter in the aortic root, engaged left main, took standard view s, then exchanged for 6-Namibian JR4 catheter, engaged the right coronary artery and then put a 6-Frenc h pigtail catheter into the distal aorta and performed distal aortogram and runoff. Then, I removed the catheter and sheath was removed and placed 6-Namibian Angio-Seal with good hemostasis before closur e. Findings: 1.Left main; largely normal. 2.LAD; large vessel. Proximal stent is patent. Distal to the stent, there is an area of 30% to 40% stenosis. Two focal areas, but with very good flow. 3.Left circumflex; large, codominant vessel. Proximal area of bend with 30% stenosis. Otherwise no rmal vessel and branches. 4.RCA; codominant circulation and normal. Peripheral Angiogram Findings: 1.Bilateral common iliacs are patent and no disease. 2.Bilateral common femoral arteries are patent with luminal irregularities. 3.Bilateral profunda are patent. 4.The right SFA is patent with distal diffuse 30% stenosis and below the knee on the right. Three-v essel runoff showed diffuse disease about 60%. On the left side, the left SFA has a mid focal stenos is of 80% and then diffuse distal disease about 60% to 70% with acceptable flow below the knee. Conclusion: 1.Mild nonobstructive coronary artery disease with patent LAD stent. 2.Severe left SFA stenosis. Plan: We will plan to do a staged intervention in about 6-8 weeks. It was not done due to the contr ast load and the presence of chronic kidney disease. We will allow some time for rest for the kidney s and then in about 6 weeks, we will plan for angioplasty. /RAHUL Voice ID: [id number] Report ID: [id number]
[2020-12-20 15:08] VITALS: TEMP 97
[2020-12-20 15:09] VITALS: BP 174/49; O2SAT 96
== END 2020-12-20 15:11 | disposition home or self-care (01) ==
LOC: CCL 11:04
PROVIDERS: ATTEND Internal Medicine
DX: I25.110 Atherosclerotic heart disease of native coronary artery with unstable angina pectoris (principal); I70.203 Unspecified atherosclerosis of native arteries of extremities, bilateral legs; I10 Essential (primary) hypertension; E78.00 Pure hypercholesterolemia, unspecified; J44.9 Chronic obstructive pulmonary disease, unspecified; D50.9 Iron deficiency anemia, unspecified; D63.8 Anemia in other chronic diseases classified elsewhere; Z95.5 Presence of coronary angioplasty implant and graft; Z88.0 Allergy status to penicillin; Z88.3 Allergy status to other anti-infective agents; Z88.6 Allergy status to analgesic agent; Z88.8 Allergy status to other drugs, medicaments and biological substances
CPT/HCPCS: 93005 ×2; 85025; 80048; 36415; 85610; 85730; 71046; 36200; 75630; 93454; C1893; C1760; J0360; J2250; J3010; J7040; J1644

== ENCOUNTER 2021-01-10 10:50 | Day surgery (SDC) | payer OTHER ==
[2021-01-08 11:57] LABS: Absolute Lymphocytes (CBC) 1.5 K/uL (0.7-4.9); Basophils % 1.1 % (0-1.3); Hematocrit 24.1 % (36.0-45.0); Lymphocytes % 20.4 % (15.3-44.8); MPV 7.3 fL (7.6-11.3); RBC Red Blood Cell Count 3.63 M/uL (3.86-4.86)
[2021-01-08 12:11] LABS: Protime INR 1.02
[2021-01-08 12:15] LABS: Potassium 4.1 mmol/L (3.5-5.1)
[2021-01-08 12:56] LABS: Anisocytosis 2+; Blood Morphology Comment NOTED (NOT SEEN); Hypochromasia 1+; Platelet Estimate ADEQ; White Blood Cell Scan OK (OK)
--- NOTE | 2021-01-08 16:54 | EKG ---
Test Date: 2021-01-08 Test Time: 10:26:57 Camp Manager: JAZMIN MEASUREMENT RESULTS: Intervals: Rate: 67 RI: 170 QRSD: 120 QT: 442 QTc: 467 [place]: P: 45 RI: 170 QRS: -38 T: 95 INTERPRETIVE STATEMENTS: Normal sinus rhythm Left axis deviation Anterior infarct, age undetermined Abnormal ECG Compared to ECG 12/18/2020 09:13:53 Myocardial infarct finding now present Sinus arrhythmia no longer present Left bundle-branch block no longer present Electronically Signed On 01-08-21 16:53:24 CDT by John Grant
[2021-01-10] MEDS ORDERED: HEPA 1000U/500MLS 2,000 UNIT/1,000 ML BAG IV ONE (11:07)
[2021-01-10] MEDS ORDERED: NA CHLORIDE 0.9% 500 ML ONE (11:17)
[2021-01-10 11:51] VITALS: TEMP 97.4
[2021-01-10] MEDS ORDERED: MIDAZOLAM HCL 2 MG/2 ML INJ ONE (12:19)
[2021-01-10] MEDS ORDERED: VERAPAMIL HCL 10 MG/4 ML VIAL IV ONE (12:20)
[2021-01-10] MEDS ORDERED: HEPARIN 5000 UNIT/ML 1 ML VIAL ONE (12:20)
[2021-01-10] MEDS ORDERED: ATROPINE SULF 1 MG/10 ML SYR IV ONE (12:20)
[2021-01-10] MEDS ORDERED: FENTANYL CITR 100 MCG/2 ML ONE (12:20)
[2021-01-10] MEDS ORDERED: NITROGLYCERIN/D5W 25 MG/250 ML BTL IV ONE (12:21)
[2021-01-10] MEDS ORDERED: NITROGLYCERIN 100 MCG/ML SYR (for cath lab use only) IV ONE (12:21)
[2021-01-10 13:45] VITALS: BP 157/40; O2SAT 98
== END 2021-01-10 13:46 | disposition home or self-care (01) ==
LOC: CCL 10:50
PROVIDERS: ATTEND Internal Medicine
DX: I73.9 Peripheral vascular disease, unspecified (principal); Z53.8 Procedure and treatment not carried out for other reasons; Z20.822 Contact with and (suspected) exposure to COVID-19
CPT/HCPCS: 93005; 85025; 80048; 36415; 85610; 85730; U0003; J1644 ×2; J2250; J3010; J7040